=== PATIENT | female | born 2000 | race Caucasian/White ===

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

== ENCOUNTER 2023-05-20 13:45 | Emergency (ER) | payer MEDICAID ==
[~2023-05-20] VITALS: Ht 170.2 cm; Wt 59.1 kg
[2023-05-20 13:46] VITALS: TEMP 97.9
[2023-05-20 15:10] VITALS: BP 100/60; PULSE 79; RESP 15
[2023-05-20] MEDS ORDERED: ERYT3.5O8 OS (15:36)
== END 2023-05-20 15:52 | disposition home or self-care (01) ==
LOC: EMS 14:10
DX: B30.9 Viral conjunctivitis, unspecified (principal); J45.909 Unspecified asthma, uncomplicated
CPT/HCPCS: 99283; Z7502

== ENCOUNTER 2025-09-20 21:30 | Emergency (ER) | payer SELFPAY ==
[~2025-09-20] VITALS: Ht 170.2 cm; Wt 63.6 kg
[~2025-09-20 21:30] MED LIST changes: +ERYT3.5O8 OS
[2025-09-20 21:34] VITALS: TEMP 98.1
[2025-09-21 01:00] VITALS: BP 101/71; PULSE 75; RESP 16; O2SAT 99
[2025-09-21] MEDS ORDERED: LACO100T14 PO (01:07)
[2025-09-21] MEDS: LACOSAMIDE 100 MG TABLET PO ONE (01:11)
== END 2025-09-21 02:30 | disposition home or self-care (01) ==
LOC: EMS 21:32
DX: R56.9 Unspecified convulsions (principal); J45.909 Unspecified asthma, uncomplicated; Z79.899 Other long term (current) drug therapy; Z76.0 Encounter for issue of repeat prescription; Z98.890 Other specified postprocedural states
CPT/HCPCS: 99283